=== PATIENT | male | born 1940 | race Caucasian/White ===

== ENCOUNTER 2016-02-21 15:20 | Emergency (ER) | payer MEDICARE, OTHER ==
[~2016-02-21] VITALS: Ht 175.3 cm; Wt 75.8 kg
[~2016-02-21 15:20] MED LIST: ACET325T38 PO; ASPI325T4 PO; CLOP75TA3 PO; METO-272 PO; MULT-954 PO; OMEG1CAP58 PO; OMEP10SU PO; SAW80CAP PO; SMV20T PO; TAMS-8 PO
[2016-02-21 15:31] VITALS: BP 151/70
== END 2016-02-21 16:02 | disposition home or self-care (01) ==
LOC: ED 15:22
DX: R23.3 Spontaneous ecchymoses (principal); M79.604 Pain in right leg
CPT/HCPCS: 99281; 99282

== ENCOUNTER → 2016-03-12 | Outpatient (CLI) | payer MEDICARE, OTHER ==
[2016-03-12 08:09] LABS: BASOPHILS % (AUTO) 1 % (0-2); EOSINOPHILS # (AUTO) 0.4 10^3uL; EOSINOPHILS % (AUTO) 6 % (0-4); LYMPHOCYTES # (AUTO) 1.7 X10^3; MEAN CORPUSCULAR HEMOGLOBIN 29.6 PG (26.0-34.0); MEAN CORPUSCULAR HGB CONC 33.4 g/dL (31.0-37.0); MEAN CORPUSCULAR VOLUME 89 FL (80-100); MEAN PLATELET VOLUME 10.2 FL (6.0-9.5); MONOCYTES # (AUTO) 0.7 X10^3; MONOCYTES % (AUTO) 11 % (3-11); NEUTROPHILS # (AUTO) 3.4 X10^3; NEUTROPHILS % (AUTO) 55 % (51-67); PLATELET COUNT 199 10^3uL (150-450); WHITE BLOOD COUNT 6.15 10^3uL (4.0-11.0)
[2016-03-12 08:32] LABS: ALBUMIN 4.1 g/dL (3.4-5.0); ANION GAP 13.5 MEQ/L (3-15); CALCULATED IONIZED CALCIUM 4.3 mg/dL (3.8-4.6)
== END ==
LOC: LAB 07:54
PROVIDERS: ATTEND Internal Medicine
DX: Z00.00 Encounter for general adult medical examination without abnormal findings (principal); I10 Essential (primary) hypertension; E78.4 Other hyperlipidemia; Z12.5 Encounter for screening for malignant neoplasm of prostate; R94.6 Abnormal results of thyroid function studies
CPT/HCPCS: 36415; 80053; 80061; 84439; 84443; 85025; G0103; 84153

== ENCOUNTER → 2016-03-22 | Outpatient (CLI) | payer MEDICARE, OTHER | LOC: RAD 08:15 | PROVIDERS: ATTEND Internal Medicine | DX: Z13.6 Encounter for screening for cardiovascular disorders (principal) ==